=== PATIENT | male | born 1965 | race Caucasian/White ===

== ENCOUNTER 2018-03-08 13:26 | Emergency (ER) | payer OTHER ==
[~2018-03-08] VITALS: Ht 177.8 cm; Wt 76.3 kg
[2018-03-08] MEDS ORDERED: SODIUM CHLORIDE FLUSH 10ML SYR IVF ONE (14:30)
[2018-03-08] MEDS ORDERED: AMPICILLIN/SULBACTAM 3 GM in SODIUM CHLORIDE 0.9% 100 ML IVPB ONE (14:30)
[2018-03-08 15:49] VITALS: BP 117/72
[2018-03-08] MEDS ORDERED: BACITRACIN ZINC OINT 500U/GM, 0.9 GM ONE (16:24)
== END 2018-03-08 16:31 | disposition home or self-care (01) ==
LOC: ED 15:28
DX: L03.114 Cellulitis of left upper limb (principal); F17.200 Nicotine dependence, unspecified, uncomplicated
CPT/HCPCS: 73080; 96365; 99284; J0295

== ENCOUNTER 2018-03-10 09:35 | Inpatient (IN) | payer SELFPAY ==
[~2018-03-10] VITALS: Ht 177.8 cm; Wt 79.9 kg
[2018-03-10] MEDS ORDERED: HYDR25TA6 PO (10:14)
[2018-03-10] MEDS ORDERED: LOSA50TA2 PO (10:14)
[2018-03-10] MEDS ORDERED: MORPHINE SULFATE 4 MG/ML, 1ML ONE (10:28)
[2018-03-10] MEDS ORDERED: MORPHINE SULFATE 4 MG/ML, 1ML IVPush PRN (10:30)
[2018-03-10] MEDS ORDERED: SODIUM CHLORIDE 0.9% 1,000ML IVBOLUS ONE (10:30)
[2018-03-10] MEDS ORDERED: AMPICILLIN/SULBACTAM 3 GM in SODIUM CHLORIDE 0.9% 100 ML IV ONE (10:30)
[2018-03-10] MEDS ORDERED: VANCOMYCIN PER PHARMACY MC ONE (10:30)
[2018-03-10] MEDS ORDERED: VANCOMYCIN 1,500 MG in SODIUM CHLORIDE 0.9% 250 ML IV ONE (11:00)
[2018-03-10] MEDS ORDERED: PHARMACOKINETIC CONSULTATION MC ONE ×2 (11:00→14:00)
[2018-03-10 11:35] LABS: ALANINE AMINOTRANSFERASE 66 U/L (12-78); ALBUMIN 2.6 g/dL (3.4-5.0); ANION GAP 6 mmol/L (5-15); CHLORIDE 103 mmol/L (98-107)
[2018-03-10 11:37] LABS: ALKALINE PHOSPHATASE 107 U/L (45-117); BILIRUBIN,TOTAL 0.3 mg/dL (0.2-1.0); TOTAL PROTEIN 6.7 g/dL (6.4-8.2)
[2018-03-10 11:53] LABS: MEAN CORPUSCULAR HEMOGLOBIN 31.5 pg (27.5-34.5); MEAN CORPUSCULAR HGB CONC 33.6 g/dL (33.2-36.2); MEAN CORPUSCULAR VOLUME 93.9 fL (81-97); MEAN PLATELET VOLUME 8.2 fL (7.4-10.4); PLATELET COUNT 260 x10^3/uL (130-400); RED CELL DISTRIBUTION WIDTH 13.6 % (9.4-14.8)
[2018-03-10 12:12] VITALS: BP 115/75
[2018-03-10 12:22] LABS: BASOPHILS # (AUTO) 0.04 x10^3/uL (0-0.1); BASOPHILS % (AUTO) 0 % (0-1); EOSINOPHILS # (AUTO) 0.05 x10^3/uL (0-0.4); EOSINOPHILS % (AUTO) 0 % (1-7); LYMPHOCYTES # (AUTO) 0.98 x10^3/uL (1-3.4); LYMPHOCYTES % (AUTO) 5 % (22-44); MD SCAN; MONOCYTES # (AUTO) 1.42 x10^3/uL (0.2-0.8); MONOCYTES % (AUTO) 8 % (2-9); NEUTROPHILS # (AUTO) 15.87 x10^3/uL (1.8-6.8); NEUTROPHILS % (AUTO) 86 % (42-75)
[2018-03-10 13:43] VITALS: BP 115/74
[2018-03-10] MEDS ORDERED: hydrALAzine 20 MG/ML, 1ML IVPush PRN (14:00)
[2018-03-10] MEDS ORDERED: PHARMACOKINETIC MONITORING MC PRN (14:00)
[2018-03-10] MEDS ORDERED: DOCUSATE 100 MG CAPSULE PO PRN (14:00)
[2018-03-10] MEDS ORDERED: ACETAMINOPHEN 325 MG TABLET PO PRN (14:00)
[2018-03-10] MEDS ORDERED: OXYcodone IR 5MG TABLET PO PRN (14:00)
[2018-03-10] MEDS ORDERED: ONDANSETRON 2MG/ML, 2ML IVPush PRN (14:00)
[2018-03-10] MEDS ORDERED: VANCOMYCIN PER PHARMACY MC PRN (14:00)
[2018-03-10] MEDS: SODIUM CHLORIDE 0.9% 1,000 ML IV SCH (14:09)
[2018-03-10] MEDS: AMPICILLIN/SULBACTAM 3 GM in SODIUM CHLORIDE 0.9% 100 ML IV SCH ×2 (16:12→23:25)
[2018-03-10 19:33] VITALS: BP 113/67
[2018-03-10] MEDS: LOSARTAN 50MG TABLET PO SCH (23:25)
[2018-03-11] MEDS: VANCOMYCIN 1,500 MG in SODIUM CHLORIDE 0.9% 250 ML IV SCH ×2 (00:32→13:11)
[2018-03-11 01:17] VITALS: BP 98/61
[2018-03-11] MEDS: AMPICILLIN/SULBACTAM 3 GM in SODIUM CHLORIDE 0.9% 100 ML IV SCH ×4 (05:14→23:57)
[2018-03-11] MEDS: SODIUM CHLORIDE 0.9% 1,000 ML IV SCH (05:15)
[2018-03-11 05:18] LABS: CALCIUM 7.6 mg/dL (8.5-10.1); CHLORIDE 109 mmol/L (98-107)
[2018-03-11 05:22] LABS: ANION GAP 6 mmol/L (5-15); CREATININE 0.76 mg/dL (0.7-1.3)
[2018-03-11 05:26] LABS: BASOPHILS # (AUTO) 0.02 x10^3/uL (0-0.1); BASOPHILS % (AUTO) 0 % (0-1); EOSINOPHILS # (AUTO) 0.25 x10^3/uL (0-0.4); EOSINOPHILS % (AUTO) 2 % (1-7); LYMPHOCYTES % (AUTO) 8 % (22-44); MD NO; MEAN CORPUSCULAR HEMOGLOBIN 31.3 pg (27.5-34.5); MEAN CORPUSCULAR HGB CONC 33.7 g/dL (33.2-36.2); MEAN CORPUSCULAR VOLUME 93.1 fL (81-97); MEAN PLATELET VOLUME 8.8 fL (7.4-10.4); MONOCYTES # (AUTO) 0.82 x10^3/uL (0.2-0.8); MONOCYTES % (AUTO) 6 % (2-9); NEUTROPHILS # (AUTO) 11.76 x10^3/uL (1.8-6.8); NEUTROPHILS % (AUTO) 84 % (42-75); PLATELET COUNT 268 x10^3/uL (130-400); RED BLOOD COUNT 4.05 x10^6/uL (4.38-5.82); RED CELL DISTRIBUTION WIDTH 13.7 % (9.4-14.8)
[2018-03-11 07:13] VITALS: BP 110/71
[2018-03-11] MEDS ORDERED: LACTOBACILLUS CHEW TABLET ONE ×2 (09:36→09:37)
[2018-03-11] MEDS: LOSARTAN 50MG TABLET PO SCH ×2 (09:40→21:15)
[2018-03-11] MEDS: HYDROCHLOROTHIAZIDE 25 MG TABLET PO SCH (09:40)
[2018-03-11 14:32] VITALS: BP 111/69
[2018-03-11 20:18] VITALS: BP 110/65
[2018-03-12 00:29] VITALS: BP 107/72
[2018-03-12] MEDS: VANCOMYCIN 1,500 MG in SODIUM CHLORIDE 0.9% 250 ML IV SCH ×2 (01:21→14:04)
[2018-03-12 05:43] LABS: BASOPHILS # (AUTO) 0.09 x10^3/uL (0-0.1); BASOPHILS % (AUTO) 1 % (0-1); EOSINOPHILS % (AUTO) 3 % (1-7); LYMPHOCYTES # (AUTO) 1.46 x10^3/uL (1-3.4); LYMPHOCYTES % (AUTO) 14 % (22-44); MD NO; MEAN CORPUSCULAR HEMOGLOBIN 31.3 pg (27.5-34.5); MEAN CORPUSCULAR HGB CONC 33.9 g/dL (33.2-36.2); MEAN CORPUSCULAR VOLUME 92.6 fL (81-97); MEAN PLATELET VOLUME 8.7 fL (7.4-10.4); MONOCYTES % (AUTO) 8 % (2-9); NEUTROPHILS # (AUTO) 7.78 x10^3/uL (1.8-6.8); NEUTROPHILS % (AUTO) 75 % (42-75); PLATELET COUNT 333 x10^3/uL (130-400); RED BLOOD COUNT 4.47 x10^6/uL (4.38-5.82); RED CELL DISTRIBUTION WIDTH 13.9 % (9.4-14.8)
[2018-03-12] MEDS: AMPICILLIN/SULBACTAM 3 GM in SODIUM CHLORIDE 0.9% 100 ML IV SCH ×2 (05:55→12:12)
[2018-03-12 07:58] VITALS: BP 122/80
[2018-03-12] MEDS: LOSARTAN 50MG TABLET PO SCH (08:45)
[2018-03-12] MEDS: HYDROCHLOROTHIAZIDE 25 MG TABLET PO SCH (08:45)
[2018-03-12] MEDS ORDERED: LACTOBACILLUS CHEW TABLET PO SCH (09:00)
[2018-03-12] MEDS ORDERED: AMOX1TAB64 PO (13:16)
[2018-03-12] MEDS ORDERED: ACID1TAB7 PO (13:22)
[2018-03-12 13:27] VITALS: BP 120/75
== END 2018-03-12 15:49 | disposition home or self-care (01) | DRG 872 ==
LOC: ED 10:48 → EDIP 11:28 → 3NE 12:03
PROVIDERS: ADMIT Hospitalist; ATTEND Hospitalist
DX: A41.9 Sepsis, unspecified organism (principal); E87.1 Hypo-osmolality and hyponatremia; L03.114 Cellulitis of left upper limb; F17.210 Nicotine dependence, cigarettes, uncomplicated; I10 Essential (primary) hypertension; Z79.899 Other long term (current) drug therapy; L98.499 Non-pressure chronic ulcer of skin of other sites with unspecified severity
CPT/HCPCS: 36415; 80048; 80053; 80202; 83605; 83735; 84145; 85025; 87040; 87070; 87077; 87205; 96365; J0295; J3370; J7030; J7050